=== PATIENT | female | born 1970 | race Caucasian/White ===

== ENCOUNTER → 2018-05-03 10:32 | Outpatient (CLI) | payer OTHER, SELFPAY ==
[2018-05-03 11:50] LABS: Alanine Aminotransferase 22 IU/L (9-52); Albumin 4.2 g/dL (3.5-5.0); Albumin Globulin Ratio 1.8 (1.0-2.8); Alkaline Phosphatase 78 U/L (38-126); Aspartate Aminotransferase 17 IU/L (14-36); Bilirubin Total 0.5 mg/dL (0.2-1.3); Bilirubin Unconjugated 0.2 mg/dL (0.0-1.1); Globulin 2.3 g/dL (1.7-4.1); HEMOLYSIS < 15 (0-50); Total Protein 6.5 g/dL (6.3-8.2)
== END ==
PROVIDERS: PCP Physician Assistant Medical; Visit Provider Specialist
DX: Z59.8 Other problems related to housing and economic circumstances (principal)
CPT/HCPCS: 36415; 80076